=== PATIENT | male | born 1970 | race Two or more races ===

== ENCOUNTER 2022-07-22 18:47 | Emergency (ER) | payer MEDICAID, OTHER ==
[~2022-07-22] VITALS: Ht 172.7 cm; Wt 79.9 kg
[2022-07-22 19:21] VITALS: BP 122/89
[2022-07-22] MEDS ORDERED: KETOROLAC TROMETH 60MG/2ML VIAL IM ONE (20:30)
== END 2022-07-22 20:35 | disposition home or self-care (01) ==
LOC: ER 18:47
DX: M54.6 Pain in thoracic spine (principal); G89.29 Other chronic pain
CPT/HCPCS: 93005; 96372; 99283; J1885